=== PATIENT | female | born 1970 | race Two or more races ===

== ENCOUNTER 2017-09-20 06:18 | Inpatient (IN) | payer BC, OTHER ==
[~2017-09-20] VITALS: Ht 157.5 cm; Wt 98.4 kg
[2017-09-20] MEDS ORDERED: GENTAMICIN SULFATE 20 MG/2 ML VIAL IV ONE (06:19)
[2017-09-20] MEDS ORDERED: CEFAZOLIN 50 ML IV ONE (06:55)
[2017-09-20] MEDS ORDERED: LIDOCAINE 1%-EPI 1:100,000 20 ML VIAL ONE (07:04)
[2017-09-20] MEDS ORDERED: BUPIVACAINE 0.25% 30 ML VIAL ONE (07:04)
[2017-09-20] MEDS ORDERED: HYDROMORPHONE 2 MG/1 ML DISP.SYRIN ONE (07:32)
[2017-09-20] MEDS ORDERED: MIDAZOLAM HCL 2 MG/2 ML VIAL ONE (07:32)
[2017-09-20] MEDS ORDERED: ROCURONIUM BROMIDE 50 MG/5 ML VIAL ONE ×2 (07:33→08:55)
[2017-09-20] MEDS ORDERED: GLYCOPYRROLATE 0.2 MG/ML VIAL MC ONE (07:34)
[2017-09-20] MEDS ORDERED: PROPOFOL 200 MG/20 ML BOTTLE IV ONE (07:34)
[2017-09-20] MEDS ORDERED: DEXAMETHASONE SOD PHOSPHATE 4 MG INJ IV ONE (07:34)
[2017-09-20] MEDS ORDERED: IV NORMAL SALINE 1000 ML BAG IV ONE (07:34)
[2017-09-20] MEDS ORDERED: ONDANSETRON 4 MG/2 ML VIAL IV ONE (07:34)
[2017-09-20] MEDS ORDERED: LIDOCAINE HCL 2% 20 ML VIAL MC ONE (07:34)
[2017-09-20] MEDS ORDERED: KETOROLAC TROMETHAMINE 30 MG INJ IM ONE (07:34)
[2017-09-20] MEDS ORDERED: CEFAZOLIN 1 G VIAL MC ONE (07:34)
[2017-09-20] MEDS ORDERED: NEOSTIGMINE METHYLSULFATE 10 MG/10 ML VIAL IV ONE (07:34)
[2017-09-20] MEDS ORDERED: DESFLURANE ANESTHESIA GAS 240 ML BOTTLE ONE (07:48)
[2017-09-20] MEDS ORDERED: CLINDAMYCIN PHOSPHATE 600 MG/4 ML VIAL ONE (09:34)
[2017-09-20] MEDS ORDERED: AMPICILLIN 1 G VIAL ONE (09:34)
[2017-09-20] MEDS ORDERED: KETOROLAC TROMETHAMINE 30 MG INJ ONE (10:56)
[2017-09-20] MEDS ORDERED: FENTANYL CITRATE 100 MCG/2 ML AMPUL ONE (10:57)
--- NOTE | 2017-09-20 12:25 | NUR ---
pt arrived on the unit after a hysterectomy, at bedside, no signs of respiratory distress, calm, cooperative resting. continue to monitor.
[2017-09-20] MEDS ORDERED: MORPHINE SULFATE 4 MG/1 ML DISP.SYRIN IV PRN (14:30)
[2017-09-20 14:38] LABS: CREATININE 0.7 mg/dL (0.6-1.3); POTASSIUM 3.3 mmol/L (3.5-5.1)
[2017-09-20] MEDS ORDERED: ACETAMINOPHEN/CODEINE 300-30 MG TABLET PO PRN (14:45)
[2017-09-20] MEDS: MORPHINE SULFATE 4 MG/1 ML DISP.SYRIN IV PRN ×2 (14:46→18:00)
[2017-09-20] MEDS: IV D5LR 1,000 ML IV PRN (15:31)
[2017-09-20] MEDS: POTASSIUM CHLORIDE 50 ML IV SCH ×2 (15:35→16:37)
[2017-09-20 17:00] VITALS: BP 108/48
[2017-09-20] MEDS: CLINDAMYCIN PHOSPHATE IV 600 MG in IV DEXTROSE 5% 100 ML IV SCH (17:12)
[2017-09-20] MEDS: GENTAMICIN SULFATE INJ 80 MG in IV DEXTROSE 5% 50 ML IV SCH (18:01)
[2017-09-20] MEDS: AMPICILLIN 2 G in NS 100 ML IV SCH (18:07)
[2017-09-20] MEDS: ONDANSETRON 4 MG/2 ML VIAL IV PRN (18:12)
--- NOTE | 2017-09-20 19:27 | NUR ---
pt observed resting in bed, last pain med given at 1800, no signs of respiratory distress. shift given to software development intern.
[2017-09-20 20:32] VITALS: BP 96/42
[2017-09-20] MEDS: KETOROLAC TROMETHAMINE 30 MG INJ IVP SCH (22:27)
[2017-09-21] MEDS: AMPICILLIN 2 G in NS 100 ML IV SCH ×3 (01:10→17:33)
[2017-09-21] MEDS: GENTAMICIN SULFATE INJ 80 MG in IV DEXTROSE 5% 50 ML IV SCH ×3 (01:10→18:08)
[2017-09-21] MEDS: MORPHINE SULFATE 4 MG/1 ML DISP.SYRIN IV PRN (01:14)
[2017-09-21 04:39] VITALS: BP 95/40
--- NOTE | 2017-09-21 06:54 | NUR ---
No episode of vomiting or nausea last night. Patient slept well. Tolerating ice chips, and has no been able to advance to a soft or solid diet yet. Dressing intact, no drainage noted. All needs attended to.
[2017-09-21 06:55] LABS: CREATININE 0.8 mg/dL (0.6-1.3); POTASSIUM 3.4 mmol/L (3.5-5.1)
[2017-09-21 06:59] LABS: BASOPHILS % (AUTO) 0.2 % (0.0-2.0); EOSINOPHILS % (AUTO) 0.2 % (0.0-7.0); HEMATOCRIT 32.6 % (31.2-41.9); HEMOGLOBIN 10.9 g/dL (10.9-14.3); LYMPHOCYTES # (AUTO) 1.5 K/uL (20.0-40.0); LYMPHOCYTES % (AUTO) 13.3 % (20.5-51.5); MEAN CORPUSCULAR HGB CONC 34 g/dL (32.3-35.6); MEAN CORPUSCULAR VOLUME 89.4 fL (75.5-95.3); MONOCYTES % (AUTO) 8.7 % (0.0-11.0); NEUTROPHILS # (AUTO) 8.8 K/uL (1.8-8.9); NEUTROPHILS % (AUTO) 77.6 % (38.5-71.5); PLATELET COUNT (AUTO) 210 K/uL (179-408); RED BLOOD CELL COUNT(AUTO) 3.64 MIL/uL (3.63-4.92); WHITE BLOOD COUNT (AUTO) 11.4 K/uL (3.8-11.8)
[2017-09-21] MEDS: IV D5LR 1,000 ML IV PRN (07:28)
--- NOTE | 2017-09-21 07:30 | NUR ---
PATIENT IS IN BED AWAKE RESTING WITH HER ABDOMINAL INCISION INTACT WITH DRESSING DRY AND INTACT.AT THIS TIME.REMAIN ON IVF WITH NO S/S OF INFILTERATION ON SITE AT THIS TIME.BARBOUR CATH TO GRAVITY DRAINAGE OF CLEAR URINE MADE COMFORTABLE AND WILL CONTINUE TO OBSERVE.
[2017-09-21] MEDS ORDERED: HYDR25TA4 PO (08:38)
[2017-09-21] MEDS ORDERED: LOSA100T15 PO (08:38)
[2017-09-21] MEDS ORDERED: METO100T7 PO (08:38)
[2017-09-21] MEDS: CLINDAMYCIN PHOSPHATE IV 600 MG in IV DEXTROSE 5% 100 ML IV SCH ×4 (08:42→16:56)
[2017-09-21] MEDS: METOPROLOL SUCCINATE XL 50 MG TAB.SR.24H PO SCH (09:00)
[2017-09-21] MEDS: HYDROCHLOROTHIAZIDE 25 MG TABLET PO SCH (09:00)
[2017-09-21] MEDS ORDERED: METOPROLOL TARTRATE 50 MG TABLET PO SCH (09:00)
[2017-09-21] MEDS: LOSARTAN POTASSIUM 50 MG TABLET PO SCH (09:00)
--- NOTE | 2017-09-21 09:04 | NUR ---
POTASSIUM LEVEL IS 3.4 DR MATIAS AWARE WITH NEW ORDERS AND NOTED.
[2017-09-21] MEDS ORDERED: POTASSIUM CHLORIDE 20 MEQ TAB.PRT.SR PO ONE ×2 (09:15→09:30)
--- NOTE | 2017-09-21 09:31 | NUR ---
CALL RECEIVED FROM DR VALENCIA STATED THAT HE IS THE ONLY DOCTOR SUPPOSED TO SEE AND GIVE ORDERS ON THIS PATIENT BUT DR MATIAS ALREADY SAW THIS PATIENT TODAY AND HE TOLD ME TO DISCONTINUE THE ORDERS FROM DR SHORT AND INFORM HIM THAT PATIENT SHOULD NOT BE SEEN BY THE HOSPITALIST.MESSAGE LEFT FOR DR MATIAS.
[2017-09-21] MEDS: KETOROLAC TROMETHAMINE 30 MG INJ IVP SCH ×2 (09:51→22:23)
[2017-09-21] MEDS: DOCUSATE SODIUM 100 MG CAPSULE PO SCH ×2 (09:52→21:10)
--- NOTE | 2017-09-21 10:00 | NUR ---
BARBOUR CATH REMOVED ORDERED AND PATIENT ENCOURAGED TO CALL TO BE ASSISTED TO THE BATHROOM NEEDED ANS SHE EXPRESSED UNDERSTANDING.
--- NOTE | 2017-09-21 10:30 | NUR ---
DR VALENCIA HERE TO SEE PATIENT HE REMOVED THE SURGICAL DRESSING AND ASKED ME TO PLACE A DRY DRESSING WITH PAPER TAPE.INCISION SITE IS CLEAN AND DRY WITH JOVANNI INTACT MADE COMFORTABLE .
[2017-09-21 11:40] VITALS: BP 104/51
[2017-09-21] MEDS: SILVER SULFADIAZINE 1% CREAM 25 GM TUBE TP SCH (13:20)
--- NOTE | 2017-09-21 13:42 | NUR ---
Clinical Pharmacy Note: Gentamicin Dosing per Pharmacy Subjective: Gentamicin IV to continue on this 47 yo female patient s/p hysterectomy . Objective: BUN 17/Scr 0.8 WBC 11.4 Temperature 98.5 Gentamicin trough level: pending Gentamicin peak level : pending Assessment/Plan: Will continue gentamicin 80 mg IVPB q8 hr for today. 4th dose is due today at 1800. Plan to check gentamicin trough at 1730 & peak at 1930. Pharmacy to review the levels when available & adjust the dose if needed. Will continue to follow closely daily.
[2017-09-21] MEDS: ACETAMINOPHEN/CODEINE 300-30 MG TABLET PO PRN ×2 (15:44→18:27)
[2017-09-21 15:55] VITALS: BP 125/58
--- NOTE | 2017-09-21 18:15 | NUR ---
IV SITE INFILTERATED WHILE HER GENTAMYCIN WAS INFUSING ATTEMPTS TO RESTART SO FAR HAS FAILED PATIENT IS A HARD STICK CALLED THE PHARMACIST AND NOTIFIED MILLA THAT PATIENT HAD A GENTA TROUGH DRAWN AT 1730 WITH A PEAK DUE AT 1930 BUT NOW THAT HER LINE IS INFILTERATED WHAT DO I DO AND HE STATED IF THE LINE IS INSERTED JUST GO AHEAD AND GIVE THE DUE GENTAMYCIN AND THAT HE WILL CANCEL THE LAB DRAW FOR THE PEAK.
--- NOTE | 2017-09-21 18:28 | NUR ---
PATIENT COMPLAINING OF ABDOMINAL PAIN CRYING MEDICATED WITH TYLENAL WITH CODEINE ORDERED MADE COMFORTABLE.
[2017-09-21 20:20] VITALS: BP 109/49
[2017-09-21] MEDS: LACTOBACILLUS RHAMNOSUS GG 1 EACH CAPSULE PO SCH (21:10)
--- NOTE | 2017-09-21 23:28 | NUR ---
RECEIVED PT AWAKE, ALERT, ORIENTEDX4. PT SHOWS NO SIGNS OF DISTRESS. PT IV INTACT AND PATENT. CALL LIGHT WITHIN REACH AND BED ALARM ON. WILL CONTINUE TO MONITOR.
[2017-09-22] MEDS: CLINDAMYCIN PHOSPHATE IV 600 MG in IV DEXTROSE 5% 100 ML IV SCH ×2 (00:15→09:25)
[2017-09-22] MEDS: GENTAMICIN SULFATE INJ 80 MG in IV DEXTROSE 5% 50 ML IV SCH (01:05)
[2017-09-22] MEDS: AMPICILLIN 2 G in NS 100 ML IV SCH (02:17)
[2017-09-22 05:19] VITALS: BP 135/84
--- NOTE | 2017-09-22 06:07 | NUR ---
PT SLEPT THROUGHOUT THE SHIFT, PT SHOWS NO SIGNS OF DISTRESS. PRESCRIBED MEDICATION GIVEN AND PT TOLERATED IT WELL. NO COMPLAIN OF PAIN.PT VOIDING WELL. CALL LIGHT WITHIN REACH. BED ALARM ON, BED IN LOW POSITION AND SIDE RAILS UPX2. WILL ENDORSE TO DAYSHIFT NURSE.
[2017-09-22] MEDS: IV D5LR 1,000 ML IV PRN (06:44)
[2017-09-22 06:57] LABS: CREATININE 0.6 mg/dL (0.6-1.3); POTASSIUM 3.8 mmol/L (3.5-5.1)
--- NOTE | 2017-09-22 07:10 | NUR ---
received report from security shift supervisor nurse, patient in bed complains of pain. Bed in low position, side rails up x2. Will bring pain medicine as ordered.
[2017-09-22] MEDS: MORPHINE SULFATE 4 MG/1 ML DISP.SYRIN IV PRN (07:36)
[2017-09-22] MEDS: LACTOBACILLUS RHAMNOSUS GG 1 EACH CAPSULE PO SCH (08:47)
[2017-09-22] MEDS: DOCUSATE SODIUM 100 MG CAPSULE PO SCH (08:47)
[2017-09-22] MEDS: HYDROCHLOROTHIAZIDE 25 MG TABLET PO SCH (08:48)
[2017-09-22] MEDS: METOPROLOL SUCCINATE XL 50 MG TAB.SR.24H PO SCH (08:48)
[2017-09-22] MEDS: LOSARTAN POTASSIUM 50 MG TABLET PO SCH (08:48)
[2017-09-22] MEDS: SILVER SULFADIAZINE 1% CREAM 25 GM TUBE TP SCH (08:49)
[2017-09-22] MEDS: ONDANSETRON 4 MG/2 ML VIAL IV PRN (08:52)
[2017-09-22] MEDS ORDERED: POTASSIUM CHLORIDE 20 MEQ TAB.PRT.SR PO ONE (09:00)
[2017-09-22] MEDS: KETOROLAC TROMETHAMINE 30 MG INJ IVP SCH (10:36)
[2017-09-22] MEDS: ACETAMINOPHEN/CODEINE 300-30 MG TABLET PO PRN (10:37)
[2017-09-22] MEDS ORDERED: [UNRECOGNIZED DRUG - OTHER] TP PRN (11:00)
[2017-09-22] MEDS ORDERED: ALOE VERA TP PRN (11:00)
[2017-09-22] MEDS ORDERED: BENZOIN TP PRN (11:00)
[2017-09-22 11:13] VITALS: BP 123/56
[2017-09-22 15:00] VITALS: BP 144/70
--- NOTE | 2017-09-22 15:40 | NUR ---
Patient was given discharge instructions, IV removed, Pictures taken of wound. Family picked up patient.
== END 2017-09-22 15:50 | disposition home or self-care (01) | DRG 743 ==
LOC: DS 06:18 → MED 13:28
PROVIDERS: ADMIT Obstetrics & Gynecology; ATTEND Obstetrics & Gynecology
PROC: 30233N1 Transfusion of Nonautologous Red Blood Cells into Peripheral Vein, Percutaneous Approach (ICD-10-PCS; 2017-09-20)
PROC: 0UT00ZZ Resection of Right Ovary, Open Approach (ICD-10-PCS; principal; 2017-09-20 07:30)
PROC: 0UT70ZZ Resection of Bilateral Fallopian Tubes, Open Approach (ICD-10-PCS; principal; 2017-09-20 07:30)
PROC: 0UN20ZZ Release Bilateral Ovaries, Open Approach (ICD-10-PCS; principal; 2017-09-20 07:30)
PROC: 0UN60ZZ Release Left Fallopian Tube, Open Approach (ICD-10-PCS; principal; 2017-09-20 07:30)
PROC: 0UT90ZZ Resection of Uterus, Open Approach (ICD-10-PCS; principal; 2017-09-20 07:30)
DX: D25.1 Intramural leiomyoma of uterus (principal); D25.2 Subserosal leiomyoma of uterus; N73.6 Female pelvic peritoneal adhesions (postinfective); D50.0 Iron deficiency anemia secondary to blood loss (chronic); E66.01 Morbid (severe) obesity due to excess calories; Z68.39 Body mass index [BMI] 39.0-39.9, adult; N93.8 Other specified abnormal uterine and vaginal bleeding; I10 Essential (primary) hypertension; G89.29 Other chronic pain; N70.11 Chronic salpingitis; Z87.42 Personal history of other diseases of the female genital tract
CPT/HCPCS: 36415; 84132; 84703; 85025; 86850; 86900; 86901; 86920; A4649; A4663; J0290; J0690; J1100; J1170; J1580; J1885; J2250; J2270; J2405; J2710; J3010; J3480; J3490; J7030; J7060; J7120; P9016-BL; P9021